=== PATIENT | male | born 1940 | race Caucasian/White ===

== ENCOUNTER 2017-10-30 12:45 | Observation (INO) ==
[2017-10-30] MEDS ORDERED: IOPAMIDOL 100 ML BOTTLE IV ONE (12:46)
--- NOTE | 2017-10-30 13:04 | Emergency Department Note ---
Altered Mental Status HPI - General Chief Complaint: Altered Mental Status Stated Complaint: Speech difficulties Time Seen by Provider: 10/30/17 12:57 Source: patient Mode of arrival: ambulatory Limitations: no limitations - History of Present Illness HPI Narrative: This patient was noted by a friend to be confused this morning. Last talk to him 2 days ago and notes that today he is much different than his normal baseline. Seems to be having trouble finding words but his speech is clear and fluid. He denies any other symptoms. - Related Data Home Medications Medication Instructions Recorded Confirmed Doxycycline Hyclate [Vibramycin] 100 mg PO BID 03/04/16 11/26/16 Lisinopril [Zestril] 10 mg PO DAILY 03/04/16 11/26/16 Nitroglycerin [Nitrostat] 0.4 mg SL Q5M PRN 03/04/16 11/26/16 Simvastatin [Zocor] 40 mg PO HS 03/04/16 11/26/16 Allergies Allergy/AdvReac Type Severity Reaction Status Date / Time No Known Drug Allergies Allergy Unverified 03/04/16 12:17 Review of Systems All systems ED: reviewed and negative except as stated. Past Medical History - Past Medical History [facility] Narrative: Medical History GERD (gastroesophageal reflux disease) (Acute) Dark stools (Acute) Groin pain (Acute) Medical history: Reports: hypertension Surgical history ED: Reports: no surgical history - Social History smoking status: Never smoker Alcohol use: Reports: None Drug use: Reports: none Physical Exam Limitations: no limitations General appearance: alert Head: atraumatic Eye: Present: normal appearance ENT: normal exam Neck: Present: normal inspection Chest: Present: normal inspection Respiratory: Present: normal lung sounds bilaterally Cardiovascular: Present: regular rate, normal rhythm, normal heart sounds Abdominal: Present: soft. Absent: distention, tenderness Neurological: Present: alert Cranial nerves: facial palsy (VII): Normal Motor strength - LUE: 5/5 Motor strength - RUE: 5/5 Motor strength - LLE: 5/5 Motor strength - RLE: 5/5 Psychiatric: Present: flat affect Skin: Present: warm, dry, intact Course Vital Signs Temperature 98.1 F 10/30/17 12:46 Pulse Rate 62 10/30/17 12:46 Respiratory Rate 18 10/30/17 12:46 Blood Pressure 138/67 10/30/17 12:46 Pulse Oximetry (%) 100 10/30/17 12:46 Temperature 98.1 F 10/30/17 12:46 Pulse Rate 62 10/30/17 14:48 Respiratory Rate 15 10/30/17 13:48 Blood Pressure 127/69 10/30/17 14:48 Pulse Oximetry (%) 100 10/30/17 14:48 Altered Mental Status - MDM Narrative Medical decision making narrative: Patient's lab work and CT and CTA of head and neck were not too remarkable. He is improving and not quite as confused. I have spoken with Dr. Painting the hospitalist and we will admit him to the hospital observation as a TIA. Continue the workup with an echocardiogram. - Lab Data Lab results reviewed: Yes I reviewed the patient's lab results. Result diagrams: 10/30/17 13:04 10/30/17 13:04 Lab Results 10/30/17 10/30/17 10/30/17 Range/Units 13:04 13:04 13:04 WBC 7.5 (4.5-11.0) K/mcL RBC 3.69 L (4.50-5.90) M/mcL Hgb 11.2 L (13.5-16.5) g/dL Hct 32.3 L (41.0-55.0) % POC Hct 32.0 L (41.0-55.0) % MCV 87.5 (80.0-100.0) fL MCH 30.3 (26.0-34.0) pg MCHC 34.6 (31.0-36.0) g/dL RDW 14.9 H (11.5-14.5) % Plt Count 235 (140-440) K/mcL MPV 7.3 L (7.4-10.4) fL Gran % 74.0 (38.0-78.0) % Lymph % (Auto) 16.4 (15.5-49.0) % [place] % (Auto) 8.5 (1.0-12.0) % Eos % (Auto) 0.9 (0.0-7.0) % Baso % (Auto) 0.2 (0.0-2.0) % Gran # 5.6 (1.8-8.0) K/mcL Lymph # (Auto) 1.2 L (1.5-4.8) K/mcL [place] # (Auto) 0.6 (0.1-0.9) K/mcL Eos # (Auto) 0.1 (0.0-0.7) K/mcL Baso # (Auto) 0 (0.0-0.3) K/mcL POC PT (11.9-14.5) sec POC INR (0.9-1.2) APTT (20-37) sec POC Sodium 133 (133-145) mmol/L Sodium 133 (133-145) mmol/L POC Potassium 3.6 (3.3-5.1) mmol/L Potassium 3.9 (3.3-5.1) mmol/L POC Chloride 106 (96-108) mmol/L Chloride 103 (96-108) mmol/L Carbon Dioxide 16 L (22-30) mmol/L POC Total CO2 17 L (22-30) mmol/L Anion Gap 14.0 (8-16) POC BUN 25 H (8-23) mg/dl BUN 25 H (8-23) mg/dl Creatinine 1.1 (0.7-1.2) mg/dl POC Creatinine 1.2 (0.7-1.2) mg/dl GFR Calculation 64 Glucose 109 H (70-105) mg/dL POC Glucose 108 H (70-105) mg/dL Calcium 8.4 L (8.6-10.4) mg/dl POC WB Ioniz Calcium 1.26 (1.16-1.32) mmol/L Total Bilirubin 0.5 (0.0-1.0) mg/dL AST 12 (0-37) U/l ALT 8 (0-40) U/l Alkaline Phosphatase 57 (39-117) U/L Troponin T < 0.01 (0-0.03) ng/ml Total Protein 7.2 (5.9-8.4) gm/dL Albumin 4.3 (3.2-5.2) gm/dL Globulin 2.9 (2.2-3.7) gm/dL Albumin/Globulin Ratio 1.5 (1.0-2.3) Urine Color Urine Appearance Urine pH (5.0-9.0) Ur Specific [place] (1.000-1.035) Urine Protein (NEG) mg/dL Urine Glucose (UA) (NEG) mg/dL Urine Ketones (NEG) mg/dL Urine Occult Blood (<0.03) mg/dL Urine Nitrate (NEG) Urine Bilirubin (NEG) mg/dL Urine Urobilinogen (NEG) mg/dL Ur Leukocyte Esterase (NEG) /uL Ur Culture Indicated? 10/30/17 10/30/17 Range/Units 13:07 14:39 WBC (4.5-11.0) K/mcL RBC (4.50-5.90) M/mcL Hgb (13.5-16.5) g/dL Hct (41.0-55.0) % POC Hct (41.0-55.0) % MCV (80.0-100.0) fL MCH (26.0-34.0) pg MCHC (31.0-36.0) g/dL RDW (11.5-14.5) % Plt Count (140-440) K/mcL MPV (7.4-10.4) fL Gran % (38.0-78.0) % Lymph % (Auto) (15.5-49.0) % [place] % (Auto) (1.0-12.0) % Eos % (Auto) (0.0-7.0) % Baso % (Auto) (0.0-2.0) % Gran # (1.8-8.0) K/mcL Lymph # (Auto) (1.5-4.8) K/mcL [place] # (Auto) (0.1-0.9) K/mcL Eos # (Auto) (0.0-0.7) K/mcL Baso # (Auto) (0.0-0.3) K/mcL POC PT 16.8 H (11.9-14.5) sec POC INR 1.4 H (0.9-1.2) APTT 25 (20-37) sec POC Sodium (133-145) mmol/L Sodium (133-145) mmol/L POC Potassium (3.3-5.1) mmol/L Potassium (3.3-5.1) mmol/L POC Chloride (96-108) mmol/L Chloride (96-108) mmol/L Carbon Dioxide (22-30) mmol/L POC Total CO2 (22-30) mmol/L Anion Gap (8-16) POC BUN (8-23) mg/dl BUN (8-23) mg/dl Creatinine (0.7-1.2) mg/dl POC Creatinine (0.7-1.2) mg/dl GFR Calculation Glucose (70-105) mg/dL POC Glucose (70-105) mg/dL Calcium (8.6-10.4) mg/dl POC WB Ioniz Calcium (1.16-1.32) mmol/L Total Bilirubin (0.0-1.0) mg/dL AST (0-37) U/l ALT (0-40) U/l Alkaline Phosphatase (39-117) U/L Troponin T (0-0.03) ng/ml Total Protein (5.9-8.4) gm/dL Albumin (3.2-5.2) gm/dL Globulin (2.2-3.7) gm/dL Albumin/Globulin Ratio (1.0-2.3) Urine Color Yellow Urine Appearance Hazy Urine pH 6.0 (5.0-9.0) Ur Specific [place] 1.027 (1.000-1.035) Urine Protein Neg (NEG) mg/dL Urine Glucose (UA) Negative (NEG) mg/dL Urine Ketones Neg (NEG) mg/dL Urine Occult Blood Neg (<0.03) mg/dL Urine Nitrate Neg (NEG) Urine Bilirubin Neg (NEG) mg/dL Urine Urobilinogen Neg (NEG) mg/dL Ur Leukocyte Esterase Neg (NEG) /uL Ur Culture Indicated? No - Radiology Data Radiology results reviewed: Yes I reviewed the patient's radiology results. Disposition Pt seen by CELERY STRIPPER/PA only: No Clinical Impression: Altered mental status, TIA (transient ischemic attack) Disposition: Xfer As Outpt/Obs ([facility]) Condition: Good Referrals: Fede Souza MD [Family Provider] - Time of Disposition: 15:34
[2017-10-30 13:33] LABS: Basophils # (Auto) 0 K/mcL (0.0-0.3); Basophils % (Auto) 0.2 % (0.0-2.0); Eosinophils # (Auto) 0.1 K/mcL (0.0-0.7); Eosinophils % (Auto) 0.9 % (0.0-7.0); Lymphocytes # (Auto) 1.2 K/mcL (1.5-4.8); Lymphocytes % (Auto) 16.4 % (15.5-49.0); Mean Cell Volume 87.5 fL (80.0-100.0); Mean Corpuscular HGB Conc 34.6 g/dL (31.0-36.0); Mean Corpuscular Hemoglobin 30.3 pg (26.0-34.0); Monocytes # (Auto) 0.6 K/mcL (0.1-0.9); Monocytes % (Auto) 8.5 % (1.0-12.0); Platelet Count 235 K/mcL (140-440); RBC 3.69 M/mcL (4.50-5.90); Red Cell Distribution Width 14.9 % (11.5-14.5)
--- NOTE | 2017-10-30 13:48 | Cat Scan Report ---
CLINICAL INFORMATION: Slurred speech COMPARISON: None. TECHNIQUE: Axial noncontrast-enhanced images through the brain. FINDINGS: No acute intracranial hemorrhage. No subdural hematoma. No subarachnoid hemorrhage. Basilar cisterns are normal. No intra-axial hematoma. No focal attenuation abnormality or localized mass effect. No midline shift. Brain volume is within normal limits for age. Brainstem and cerebellum are negative. No calvarial lesions. No fracture. No lytic lesion. Temporal bones are negative. There is inflammatory disease within ethmoid and sphenoid air cells. No air-fluid levels. No destructive lesions. IMPRESSION: Negative noncontrast enhanced brain CT scan The exam was performed using radiation dose optimization techniques including, but not limited to, automated exposure control, adjustment of the mA and/or kV according to patient size and use of iterative reconstruction technique. Interpreted and Authenticated by: Onel Carlson 10/30/17
[2017-10-30 13:53] LABS: ALT/SGPT 8 U/l (0-40); Albumin 4.3 gm/dL (3.2-5.2); Albumin/Globulin Ratio 1.5 (1.0-2.3); Alkaline Phosphatase 57 U/L (39-117); Blood Urea Nitrogen 25 mg/dl (8-23)
--- NOTE | 2017-10-30 13:53 | Cat Scan Report ---
CLINICAL INFORMATION: Slurred speech TECHNIQUE: 90 mL contrast injected intravenously. Scanning performed during arterial phase. Routine axial source images. MIP reformatted axial, sagittal, coronal images COMPARISON: On contrast enhanced brain CT scan dated 10/30/2017 FINDINGS: Intracranial vertebral arteries are normal. Left vertebral artery is larger than the right. Basilar artery is normal. No stenosis. No dilatation. No basilar tip aneurysm. Atherosclerotic disease in the petrous, cavernous, and proximal supraclinoid segments of the internal carotid arteries. No stenosis. No aneurysm. M1 segments of the middle cerebral arteries and A1 segments of the anterior cerebral arteries are negative. No stenosis. No intracranial aneurysm. No arteriovenous malformation. No detectable occluded branch. No enhancing intra-axial abnormality. Dural sinuses are patent. No pathologic leptomeningeal or dural enhancement. No intra-axial enhancing lesions. IMPRESSION: 1. Mild atherosclerotic calcification of the petrous, cavernous, and supraclinoid segments of the internal carotid arteries 2. No intracranial stenoses. No occluded branch. 3. No aneurysm or arteriovenous malformation Interpreted and Authenticated by: Onel Carlson 10/30/17
--- NOTE | 2017-10-30 14:06 | Cat Scan Report ---
CLINICAL INFORMATION: Slurred speech TECHNIQUE: 90 mL contrast material injected intravenously. Scanning performed during arterial phase. MIP and CPR reformatted images COMPARISON: None. FINDINGS: Minimal calcification at the origin of the left common carotid artery. No stenosis. Aortic arch is otherwise negative. Normal left subclavian artery, left common carotid artery, innominate artery, right common carotid artery, right subclavian artery. There is mild calcified plaque in the proximal internal carotid artery bilaterally. No soft plaque. No ulceration. No stenosis. Cervical internal carotid arteries are otherwise negative Vertebral arteries are negative. No stenosis or occlusion. Multilevel degenerative disc disease in the cervical spine. No fracture. There is reversal of normal cervical lordosis. No prevertebral soft tissue swelling. No cervical soft tissue mass. No solid or cystic lesion. Lung apices are negative. IMPRESSION: 1. Mild calcified plaque at the origin of both internal carotid arteries. 2. No soft plaque. No stenosis. No evidence for ulceration 3. No other abnormality Interpreted and Authenticated by: Onel Carlson 10/30/17
[2017-10-30 14:51] LABS: Appearance,Urine HAZY; Bilirubin,Urine NEG (NEG); Color,Urine YELLOW; Glucose,Urine (UA) NEGATIVE (NEG); Leukocyte Esterase,Urine NEG /uL (NEG); Protein,Urine NEG (NEG); Specific Gravity,Urine 1.027 (1.000-1.035); Urine Blood NEG mg/dL (<0.03); Urobilinogen,Urine NEG (NEG)
[2017-10-30] MEDS ORDERED: MAGNESIUM SULFATE 2 GM/50 ML BAG IV PRN (16:45)
[2017-10-30] MEDS ORDERED: ACETAMINOPHEN 1,000 MG/100 ML BOTTLE IV PRN (16:45)
[2017-10-30] MEDS ORDERED: POTASSIUM CHLORIDE 20 MEQ PACKET PO PRN (16:45)
[2017-10-30] MEDS ORDERED: ONDANSETRON 4 MG/2 ML VIAL IV PRN (16:45)
[2017-10-30] MEDS ORDERED: ACETAMINOPHEN 325 MG TABLET PO PRN (16:45)
[2017-10-30] MEDS: SIMVASTATIN 40 MG TABLET PO SCH ×2 (18:19→21:39)
[2017-10-30 18:29] LABS: C-Reactive Protein 0.5 mg/dl (0.0-0.8)
--- NOTE | 2017-10-30 19:01 | Magnetic Resonance Report ---
CLINICAL INFORMATION: Confusion COMPARISON: Brain CT scan dated 10/30/2017. CTA of the head and neck dated 10/30/2017 TECHNIQUE: Sagittal T1 FLAIR images. Axial DWI, T1 FLAIR, T2 FLAIR, . FINDINGS: Limited scan performed to evaluate for possible acute stroke. No restricted diffusion. No acute infarction. No focal intra-axial signal abnormality. No localized mass effect. No midline shift. There is age appropriate cerebral atrophy. No extra-axial, intracranial abnormality. No subdural hematoma. IMPRESSION: Negative Limited evaluation. No acute infarction Interpreted and Authenticated by: Onel Carlson 10/30/17
--- NOTE | 2017-10-30 19:43 | Internal Med History&Physical ---
Medical - H&P: [facility] Patient information: Note initiated : 10/30/17 at 7:39 pm Service Date, if different from initiated Date: [] Patient: Arjun Huang 76 y/o M admitted on 10/30/17 for Speech difficulties. Chief Complaint: [] Chief complaint: confused, slurred speech, double vision History of present illness: Mr. Huang is a 76 year old M with a history of hypertension/hyperlipidemia and follows up with Dr. Jaime as outpatient. Patient over the last 1 week has noticed change in vision with blurring and diplopia. He lives alone and has been managing independently with her sister and niece in town. This morning he was discovered by his friend confused and slurring and difficulty finding words. He was subsequently brought to [facility] ER. Initial workup was unremarkable with a negative head CT/CT angiogram head and neck.MRI was ordered. Patient received aspirin and statin. blood work including biochemical profile was unremarkable with a negative UA Subsequently hospitalist service was consulted for evaluation of TIA. The time of evaluation patient is accompanied with niece. denies tender clap headache. Denies fever or chills. He endorses double vision that has been ongoing over the last couple of days. He however was able to answer most the question and his symptoms have significantly improved since arrival to the ER. He denies swallowing difficulty. Denies seizure-like episode or loss of consciousness. Denies chest pain palpitation during neck pain unilateral headache. He denies recent changes in medication or prior similar episodes. He denies weight loss and glandular swelling. Review of systems A 10 point review of system was performed and is negative except for ones discussed above Medical - H&P: PMH Medical history: hypertension Hyperlipidemia GERD (gastroesophageal reflux disease) Pertinent family history: nonrelevant Social history: nonsmoker No history of alcoholism lives independently Have you smoked in the last 12 months: No Medical - H&P: Meds Home Medications Medication Instructions Recorded Confirmed Type Lisinopril [Zestril] 10 mg PO DAILY 03/04/16 11/26/16 History Nitroglycerin [Nitrostat] 0.4 mg SL Q5M PRN 03/04/16 11/26/16 History Simvastatin [Zocor] 40 mg PO HS 03/04/16 11/26/16 History Aspirin 324 mg CHEWED DAILY #30 tab.chew 10/31/17 Rx Allergies Allergy/AdvReac Type Severity Reaction Status Date / Time No Known Drug Allergies Allergy Unverified 03/04/16 12:17 Medical - H&P: Exam - Constitutional Vitals: Temp Pulse Resp BP Pulse Ox 98.1 F 62 15 139/68 99 10/30/17 16:47 10/30/17 17:10 10/30/17 16:47 10/30/17 16:47 10/30/17 16:47 Exam: Alert oriented Difficulty ord finding No ear nose discharge Head normocephalic atraumatic Neck no lymphadenopathy S1-S2 regular rhythm E SM grade 1 Diminished breath sounds bases Abdomen soft nontender Lower extremity no cyanosis clubbing No joint swelling erythema Skin no suspicious lesion Psych alert cooperative Neuro Higher functions unremarkable Asymmetric pupil Disconjugate gaze with left eye laterally deviated Symmetrical strength Symmetrical tone Symmetrical reflexes erebellar signs negative Medical - H&P: Reslt - Labs CBC & Chem 7: 10/31/17 04:10 10/31/17 04:10 Labs: Short CBC 10/30/17 Range/Units 13:04 WBC 7.5 (4.5-11.0) K/mcL Hgb 11.2 L (13.5-16.5) g/dL Hct 32.3 L (41.0-55.0) % Plt Count 235 (140-440) K/mcL BMP 10/30/17 13:04 Sodium 133 Potassium 3.9 Chloride 103 Carbon Dioxide 16 L BUN 25 H Creatinine 1.1 Glucose 109 H Calcium 8.4 L Cardiac Enzymes 10/30/17 Range/Units 13:04 Troponin T < 0.01 (0-0.03) ng/ml Liver Function 10/30/17 Range/Units 13:04 Total Bilirubin 0.5 (0.0-1.0) mg/dL AST 12 (0-37) U/l ALT 8 (0-40) U/l Alkaline Phosphatase 57 (39-117) U/L Albumin 4.3 (3.2-5.2) gm/dL Urine 10/30/17 Range/Units 14:39 Urine Color Yellow Urine Appearance Hazy Urine pH 6.0 (5.0-9.0) Ur Specific [place] 1.027 (1.000-1.035) Urine Protein Neg (NEG) mg/dL Urine Glucose (UA) Negative (NEG) mg/dL Medical - H&P: A/P (1) Diplopia Current visit: Yes Status: Acute * diplopia with Dysarthria- likely brainstem lesion with bulbar symptoms. CT head/CT Angiohead and neck negative. MRI pending.echo pending. On aspirin and statin. admitted to telemetry. Aggressive PT OT. * History of hypertension continue lisinopril * full code * Prophylaxis heparin Plan * CVA workup * Aggressive PT OT * Telemetry admit
[2017-10-30] MEDS: 0.9 % SODIUM CHLORIDE 1,000 ML IV SCH (20:33)
[2017-10-30] MEDS: DOCUSATE SODIUM 100 MG CAPSULE PO SCH (21:38)
[2017-10-30] MEDS: SENNOSIDES/DOCUSATE SODIUM 1 TAB TABLET PO SCH (21:38)
[2017-10-30] MEDS: HEPARIN 5,000 UNIT/ML VIAL SQ SCH (21:38)
[2017-10-30] MEDS: 0.9 % SODIUM CHLORIDE 10 ML SYRINGE IV SCH (21:40)
[2017-10-31] MEDS: 0.9 % SODIUM CHLORIDE 10 ML SYRINGE IV SCH ×3 (05:15→22:00)
[2017-10-31 05:28] LABS: Mean Cell Volume 88.5 fL (80.0-100.0); Mean Corpuscular HGB Conc 33.6 g/dL (31.0-36.0); Mean Corpuscular Hemoglobin 29.8 pg (26.0-34.0); Platelet Count 224 K/mcL (140-440); RBC 3.48 M/mcL (4.50-5.90); Red Cell Distribution Width 14.7 % (11.5-14.5)
[2017-10-31 06:02] LABS: Eosinophils % (Manual) 2 % (0-7); Lymphocytes % 27 % (15-49); Monocytes % (Manual) 7 % (1-12); Platelet Estimate NORMAL (NORMAL); RBC Morphology NORMAL (NORMAL); Segmented Neutrophils % 63 % (38-78)
[2017-10-31 06:40] LABS: ALT/SGPT 8 U/l (0-40); Albumin 3.8 gm/dL (3.2-5.2); Albumin/Globulin Ratio 1.5 (1.0-2.3); Alkaline Phosphatase 54 U/L (39-117); Bilirubin,Direct < 0.2 mg/dL (0.0-0.3); Blood Urea Nitrogen 20 mg/dl (8-23); Gamma Glutamyl Transpeptidase 9 U/L (8-61); Uric Acid 4.9 mg/dL (2.5-8.0)
[2017-10-31] MEDS: THIAMINE 100 MG in 0.9 % SODIUM CHLORIDE 50 ML IV SCH (09:22)
[2017-10-31] MEDS: MULTIVIT,THER IRON,CA,FA & MIN 1 TABLET PO SCH (09:23)
[2017-10-31] MEDS: ASPIRIN 81 MG TAB.CHEW CHEWED SCH (09:23)
[2017-10-31] MEDS: HEPARIN 5,000 UNIT/ML VIAL SQ SCH ×2 (09:23→19:43)
[2017-10-31] MEDS: DOCUSATE SODIUM 100 MG CAPSULE PO SCH ×2 (09:24→19:43)
--- NOTE | 2017-10-31 09:36 | Discharge Summary ---
Medical - DS: Prov Patient information: Note initiated : 10/31/17 at 9:34 am Service Date, if different from initiated Date: [] Patient: Arjun Huang 76 y/o M admitted on 10/30/17 for Speech difficulties. Chief Complaint: [] Date of admission: 10/30/17 16:39 Discharge date: 10/31/17 Primary care physician: Arjun Brooks Consults: 10/30/17 15:30 Consult to Physician [CONS] Stat Comment: Consulting Provider: Adebayo Martin Reason For Exam: Physician to Consult Medical - DS: Meds - Discharge Medications Prescriptions: Aspirin 324 mg CHEWED DAILY #30 tab.chew Active and Home Medications: Home Medications Lisinopril [Zestril] 10 mg PO DAILY 03/04/16 [History Confirmed 11/26/16 Last Taken Unknown] Nitroglycerin [Nitrostat] 0.4 mg SL Q5M PRN 03/04/16 [History Confirmed Last Taken Unknown] Simvastatin [Zocor] 40 mg PO HS 03/04/16 [History Confirmed 11/26/16 Last Taken Unknown] Aspirin 324 mg CHEWED DAILY #30 tab.chew 10/31/17 [Rx Last Taken Unknown] Medical - DS: Hosp Hospital course: Discharge diagnosis * Diplopia with Dysarthria- likely brainstem lesion with bulbar symptoms. CT head/CT Angio head and neck/MRI brain negative. Echo pending. On aspirin and statin. Continue home health PT OT. DC home * History of hypertension continue lisinopril [facility] Mr. Huang is a 76 year old M with a history of hypertension/hyperlipidemia and follows up with Dr. Jaime as outpatient. Patient over the last 1 week has noticed change in vision with blurring anddiplopia. lives alone and has been managing independently with her sister and niece in town. This morning he was discovered by his friend confused and slurring and difficulty finding words. He was subsequently brought to [facility]. Initial workup was unremarkable with a negative head CT/CT angiogram head and neck.MRI was ordered. Patient received aspirin and statin. blood work including biochemical profile was unremarkable with a negative UA Subsequently hospitalist service was consulted for evaluation of TIA. The time of evaluation patient is accompanied with niece. denies tender clap headache. Denies fever or chills. He endorses double vision that has been ongoing over the last couple of days. He however was able to answer most the question and his symptoms have significantly improved since arrival to the ER. He denies swallowing difficulty. Denies seizure-like episode or loss of consciousness. Denies chest pain palpitation during neck pain unilateral headache. He denies recent changes in medication or prior similar episodes. He denies weight loss and glandular swelling. 10/31- symptoms fully resolved. Diplopia resolved. No dysarthria and dysphagia. Neuroimaging unremarkable. Echo pending. Continue aspirin and statin. Discharge with home health physical therapy/occupational therapy. Follow-up PCP in 5-10 days Discharge diagnosis: . - Time Spent with Patient Total time spent providing and/or coordinating discharge services: Greater than 30 minutes Medical - DS: Exam - Constitutional Vitals: Vital Signs Temp Pulse Pulse Pulse Resp BP BP 10/31/17 06:55 98.8 F 14 135/53 10/31/17 03:55 97.8 F 60 16 132/68 10/30/17 23:53 98.2 F 72 16 126/58 10/30/17 20:00 98.0 F 68 16 148/64 10/30/17 17:10 62 10/30/17 16:47 98.1 F 62 15 139/68 10/30/17 16:45 98.6 F 64 15 10/30/17 15:56 15 10/30/17 15:46 62 139/68 10/30/17 15:32 51 L 121/56 10/30/17 15:16 59 L 131/67 10/30/17 15:01 64 131/71 10/30/17 14:48 62 127/69 10/30/17 14:46 61 127/69 10/30/17 14:31 64 126/66 10/30/17 14:16 62 126/69 10/30/17 14:04 59 L 10/30/17 14:01 127/63 10/30/17 13:48 15 128/61 10/30/17 13:21 59 L 19 10/30/17 13:16 58 L 18 115/60 10/30/17 13:15 57 L 18 10/30/17 13:11 59 L 17 126/64 10/30/17 12:46 98.1 F 62 18 138/67 Pulse Ox 10/31/17 06:55 97 10/31/17 03:55 99 10/30/17 23:53 98 10/30/17 20:00 10/30/17 17:10 10/30/17 16:47 99 10/30/17 16:45 98 10/30/17 15:56 10/30/17 15:46 99 10/30/17 15:32 95 10/30/17 15:16 99 10/30/17 15:01 100 10/30/17 14:48 100 10/30/17 14:46 100 10/30/17 14:31 99 10/30/17 14:16 94 10/30/17 14:04 96 10/30/17 14:01 10/30/17 13:48 10/30/17 13:21 98 10/30/17 13:16 99 10/30/17 13:15 99 10/30/17 13:11 98 10/30/17 12:46 100 Intake and Output 10/30/17 10/31/17 10/31/17 21:59 05:59 13:59 Intake Total 0 / 0 Output Total 250 / 250 650 / 650 250 / 250 Balance -250 / -250 -650 / -650 -250 / -250 Intake: Oral 0 / 0 Output: Void Amount 250 / 250 650 / 650 250 / 250 Other: # Voids 1 Weight 153 lb 8 oz Medical - DS: Data Labs on day of discharge: Labs from last 24 hours 10/31/17 10/31/17 10/30/17 04:10 04:10 14:39 WBC 8.3 RBC 3.48 L Hgb 10.4 L Hct 30.8 L POC Hct MCV 88.5 MCH 29.8 MCHC 33.6 RDW 14.7 H Plt Count 224 MPV 7.6 Gran % Lymph % (Auto) Crane % (Auto) Eos % (Auto) Baso % (Auto) Gran # Lymph # (Auto) [place] # (Auto) Eos # (Auto) Baso # (Auto) Total Counted 100 Seg Neutrophils % 63 Band Neutrophils % Not Reportable Lymphocytes % 27 Monocytes % (Manual) 7 Eosinophils % (Manual) 2 Reactive Lymphocytes 1 Platelet Estimate Normal RBC Morphology Normal ESR POC PT POC INR APTT POC Sodium Sodium 135 POC Potassium Potassium 3.7 POC Chloride Chloride 105 Carbon Dioxide 15 L POC Total CO2 Anion Gap 15.0 POC BUN BUN 20 Creatinine 1.1 POC Creatinine GFR Calculation 64 Glucose 96 POC Glucose Uric Acid 4.9 Calcium 8.4 L POC WB Ioniz Calcium Phosphorus 2.9 Magnesium 2.1 Total Bilirubin 0.3 Direct Bilirubin < 0.2 GGT 9 AST 11 ALT 8 Alkaline Phosphatase 54 Lactate Dehydrogenase 150 Troponin T C-Reactive Protein Total Protein 6.4 Albumin 3.8 Globulin 2.6 Albumin/Globulin Ratio 1.5 Triglycerides 52 TSH 2.06 Urine Color Yellow Urine Appearance Hazy Urine pH 6.0 Ur Specific [place] 1.027 Urine Protein Neg Urine Glucose (UA) Negative Urine Ketones Neg Urine Occult Blood Neg Urine Nitrate Neg Urine Bilirubin Neg Urine Urobilinogen Neg Ur Leukocyte Esterase Neg Ur Culture Indicated? No 10/30/17 10/30/17 10/30/17 13:07 13:04 13:04 WBC RBC Hgb Hct POC Hct MCV MCH MCHC RDW Plt Count MPV Gran % Lymph % (Auto) [place] % (Auto) Eos % (Auto) Baso % (Auto) Gran # Lymph # (Auto) [place] # (Auto) Eos # (Auto) Baso # (Auto) Total Counted Seg Neutrophils % Band Neutrophils % Lymphocytes % Monocytes % (Manual) Eosinophils % (Manual) Reactive Lymphocytes Platelet Estimate RBC Morphology ESR 43 H POC PT 16.8 H POC INR 1.4 H APTT 25 POC Sodium Sodium POC Potassium Potassium POC Chloride Chloride Carbon Dioxide POC Total CO2 Anion Gap POC BUN BUN Creatinine POC Creatinine GFR Calculation Glucose POC Glucose Uric Acid Calcium POC WB Ioniz Calcium Phosphorus Magnesium Total Bilirubin Direct Bilirubin GGT AST ALT Alkaline Phosphatase Lactate Dehydrogenase Troponin T C-Reactive Protein 0.5 Total Protein Albumin Globulin Albumin/Globulin Ratio Triglycerides TSH Urine Color Urine Appearance Urine pH Ur Specific [place] Urine Protein Urine Glucose (UA) Urine Ketones Urine Occult Blood Urine Nitrate Urine Bilirubin Urine Urobilinogen Ur Leukocyte Esterase Ur Culture Indicated? 10/30/17 10/30/17 10/30/17 13:04 13:04 13:04 WBC 7.5 RBC 3.69 L Hgb 11.2 L Hct 32.3 L POC Hct 32.0 L MCV 87.5 MCH 30.3 MCHC 34.6 RDW 14.9 H Plt Count 235 MPV 7.3 L Gran % 74.0 Lymph % (Auto) 16.4 Crane % (Auto) 8.5 Eos % (Auto) 0.9 Baso % (Auto) 0.2 Gran # 5.6 Lymph # (Auto) 1.2 L [place] # (Auto) 0.6 Eos # (Auto) 0.1 Baso # (Auto) 0 Total Counted Seg Neutrophils % Band Neutrophils % Lymphocytes % Monocytes % (Manual) Eosinophils % (Manual) Reactive Lymphocytes Platelet Estimate RBC Morphology ESR POC PT POC INR APTT POC Sodium 133 Sodium 133 POC Potassium 3.6 Potassium 3.9 POC Chloride 106 Chloride 103 Carbon Dioxide 16 L POC Total CO2 17 L Anion Gap 14.0 POC BUN 25 H BUN 25 H Creatinine 1.1 POC Creatinine 1.2 GFR Calculation 64 Glucose 109 H POC Glucose 108 H Uric Acid Calcium 8.4 L POC WB Ioniz Calcium 1.26 Phosphorus Magnesium Total Bilirubin 0.5 Direct Bilirubin GGT AST 12 ALT 8 Alkaline Phosphatase 57 Lactate Dehydrogenase Troponin T < 0.01 C-Reactive Protein Total Protein 7.2 Albumin 4.3 Globulin 2.9 Albumin/Globulin Ratio 1.5 Triglycerides TSH Urine Color Urine Appearance Urine pH Ur Specific [place] Urine Protein Urine Glucose (UA) Urine Ketones Urine Occult Blood Urine Nitrate Urine Bilirubin Urine Urobilinogen Ur Leukocyte Esterase Ur Culture Indicated? Medical - DS: A/P - Patient/Caregiver Discharge Instructions Activity: as per physical therapy Diet: Regular Diet Additional Instructions: Follow-up PCP in 5 days continue aspirin 325 daily Continue aggressive bowel regimen to prevent constipation Continue fall precautions home health PT OT All meals on chair sitting upright at 90 degrees to prevent aspiration Return to ER if worsening fever chills shortness of breath, diarrhea, bleeding Review risk and side effect profile of medications including aspirin. Side effect may include mild to severe reaction including life threatening bleed and even which can be prevented by close follow-up with PCP and monitoring for side effects Continue diet and activity as advised Discussed importance of medication adherence Please review medication list with patient prior to discharge Please schedule follow-up with PCP/Providers prior to discharge and provide printouts Portions of this chart may have been created with [employer] voice recognition software. Occasional wrong-word or ?sound-like? substitutions may have occurred due to the inherent limitations of voice recognition software. Please read the chart carefully and recognize, using context, where the substitutions have occurred. CC- PCP Prescriptions: Aspirin 324 mg CHEWED DAILY #30 tab.chew - Follow up Plan Follow up with: Fede Souza MD [Family Provider] - Disposition: Home Health Service Prognosis: Good Rehab Potential: Fair I certify that the patient requires SNF services: No Overall status at discharge: patient is progressing back to baseline
--- NOTE | 2017-10-31 16:20 | XRay Report ---
INDICATION: Confusion TECHNIQUE: AP chest x-ray,portable upright COMPARISON: Chest x-ray dated 09/22/2008 FINDINGS:Focal right basilar density is unchanged since previous examination. This is benign. Lungs are otherwise negative. No other focal infiltrate or mass. Heart size and vascularity are normal. No pulmonary edema or pulmonary congestion. Tameka and mediastinum are negative. IMPRESSION: 1. No acute abnormality. 2. No significant interval change since 2008 Interpreted and Authenticated by: Onel Carlson 10/31/17
[2017-10-31] MEDS: SENNOSIDES/DOCUSATE SODIUM 1 TAB TABLET PO SCH (19:43)
[2017-10-31] MEDS: SIMVASTATIN 40 MG TABLET PO SCH (19:43)
[2017-10-31] MEDS: 0.9 % SODIUM CHLORIDE 1,000 ML IV SCH (19:50)
[2017-11-01 06:02] LABS: Mean Cell Volume 88.5 fL (80.0-100.0); Mean Corpuscular HGB Conc 33.8 g/dL (31.0-36.0); Mean Corpuscular Hemoglobin 29.9 pg (26.0-34.0); Platelet Count 233 K/mcL (140-440); RBC 3.61 M/mcL (4.50-5.90); Red Cell Distribution Width 14.8 % (11.5-14.5)
[2017-11-01 06:40] LABS: ALT/SGPT 7 U/l (0-40); Albumin 3.8 gm/dL (3.2-5.2); Albumin/Globulin Ratio 1.3 (1.0-2.3); Alkaline Phosphatase 53 U/L (39-117); Bilirubin,Direct < 0.2 mg/dL (0.0-0.3); Blood Urea Nitrogen 14 mg/dl (8-23); Gamma Glutamyl Transpeptidase 11 U/L (8-61)
[2017-11-01] MEDS: 0.9 % SODIUM CHLORIDE 10 ML SYRINGE IV SCH ×3 (06:47→20:57)
[2017-11-01 06:52] LABS: Eosinophils % (Manual) 2 % (0-7); Lymphocytes % 32 % (15-49); Monocytes % (Manual) 9 % (1-12); Platelet Estimate NORMAL (NORMAL); RBC Morphology NORMAL (NORMAL); Segmented Neutrophils % 56 % (38-78)
[2017-11-01] MEDS: HEPARIN 5,000 UNIT/ML VIAL SQ SCH (08:39)
[2017-11-01] MEDS: THIAMINE 100 MG in 0.9 % SODIUM CHLORIDE 50 ML IV SCH (08:39)
[2017-11-01] MEDS: DOCUSATE SODIUM 100 MG CAPSULE PO SCH ×2 (08:40→20:56)
[2017-11-01] MEDS: ASPIRIN 81 MG TAB.CHEW CHEWED SCH (08:40)
[2017-11-01] MEDS: MULTIVIT,THER IRON,CA,FA & MIN 1 TABLET PO SCH (08:40)
[2017-11-01] MEDS ORDERED: POTASSIUM CHLORIDE 20 MEQ PACKET PO PRN (11:16)
[2017-11-01] MEDS ORDERED: ACETAMINOPHEN 1,000 MG/100 ML BOTTLE IV PRN (11:16)
[2017-11-01] MEDS ORDERED: ONDANSETRON 4 MG/2 ML VIAL IV PRN (11:16)
[2017-11-01] MEDS ORDERED: MAGNESIUM SULFATE 2 GM/50 ML BAG IV PRN (11:16)
[2017-11-01] MEDS ORDERED: ACETAMINOPHEN 325 MG TABLET PO PRN (11:16)
--- NOTE | 2017-11-01 15:39 | Internal Med Progress Note ---
Medical - PN: Subj Patient information: Note initiated : 11/01/17 at 3:36 pm Service Date, if different from initiated Date: [] Patient: Arjun Huang 76 y/o M admitted on 10/30/17 for Speech Difficulties /Diplopia. Chief Complaint: [] Interval history: Mr. Huang is a 76 year old M with a history of hypertension/hyperlipidemia and follows up with Dr. Jaime as outpatient. Patient over the last 1 week has noticed change in vision with blurring anddiplopia. lives alone and has been managing independently with her sister and niece in town. This morning he was discovered by his friend confused and slurring and difficulty finding words. He was subsequently brought to [facility] ER. Initial workup was unremarkable with a negative head CT/CT angiogram head and neck.MRI was ordered. Patient received aspirin and statin. blood work including biochemical profile was unremarkable with a negative UA Subsequently hospitalist service was consulted for evaluation of TIA. The time of evaluation patient is accompanied with niece. denies tender clap headache. Denies fever or chills. He endorses double vision that has been ongoing over the last couple of days. He however was able to answer most the question and his symptoms have significantly improved since arrival to the ER. He denies swallowing difficulty. Denies seizure-like episode or loss of consciousness. Denies chest pain palpitation during neck pain unilateral headache. He denies recent changes in medication or prior similar episodes. He denies weight loss and glandular swelling. 10/31- symptoms fully resolved. Diplopia resolved. No dysarthria and dysphagia. Neuroimaging unremarkable. Echo pending. Continue aspirin and statin. Discharge with home health physical therapy/occupational therapy. Follow-up PCP in 5-10 days 11/01 Patient seen and examined, no neurological symptoms, patient's symptoms nearly resolved. Patient was deemed unstable for discharge yesterday and therefore stayed another day. Plan is for the patient to be discharged to a rehab facility we are waiting on insurance clearance. Continue with physical therapy while inpatient Pertinent ROS: Denies headache, dizziness Denies chest pain, palpitations Denies cough or shortness of breath Denies abdominal pain, nausea or vomiting. - Constitutional Vitals: Vital Signs Temp Pulse Resp BP Pulse Ox 98 F 62 16 158/78 99 11/01/17 12:15 11/01/17 12:15 11/01/17 12:15 11/01/17 12:15 11/01/17 08:30 Period Temp Pulse Resp BP Sys/Webb Pulse Ox Last 24 Hr 97.7 F-99.4 F 59-68 14-16 145-159/68-78 96-99 Intake and Output 11/01/17 11/01/17 11/01/17 05:59 13:59 21:59 Intake Total 250 / 250 969 / 969 Output Total 900 / 900 350 / 350 Balance -650 / -650 619 / 619 Intake & Output: Intake & Output 11/01/17 11/01/17 11/01/17 05:59 13:59 21:59 Intake Total 250 / 250 969 / 969 Output Total 900 / 900 350 / 350 Balance -650 / -650 619 / 619 Intake: IV 589 / 589 Sodium Chloride 0.9% 1,000 ml @ 538 / 538 42 mls/hr IV .[id number] AILYN Rx#: [id number] Vitamin B1 100 mg In Sodium 51 / 51 Chloride 0.9% 50 ml @ 50 mls/hr IV DAILY AILYN Rx#:[id number] Oral 250 / 250 380 / 380 Output: Void Amount 900 / 900 350 / 350 Other: Meal Breakfast Percent of Meal Consumed 75% Feeding Ability Independent # Voids 1 Exam: Constitutional; Afebrile, cooperative, alert, not in distress. Eyes- No icterus, , No periorbital swelling Ears- Ext ear normal, hearing okay to conversation Neck- Midline trachea, supple Respiratory system: Air Entry equal on both sides, No crackles or wheezing, no rhonchi. CVS- Rate rhythm regular, S1,S2 heard, no gallop, no rub. Abdomen- Soft nontender abdomen, no organomegaly, no tenderness, no guarding or rigidity, [employer]- AOOx3, moving all extremities, no gross focal deficit noted. Medical - PN: Obj Da - Labs CBC & Chem 7: 11/01/17 03:45 11/01/17 03:45 Labs: Abnormal Lab Results 11/01/17 11/01/17 10/31/17 03:45 03:45 04:10 RBC 3.61 L Hgb 10.8 L Hct 32.0 L POC Hct RDW 14.8 H MPV Lymph # (Auto) ESR POC PT POC INR Carbon Dioxide 16 L 15 L POC Total CO2 POC BUN BUN Glucose POC Glucose Calcium 8.5 L 8.4 L Phosphorus 2.2 L 10/31/17 10/30/17 10/30/17 04:10 13:07 13:04 RBC 3.48 L Hgb 10.4 L Hct 30.8 L POC Hct RDW 14.7 H MPV Lymph # (Auto) ESR 43 H POC PT 16.8 H POC INR 1.4 H Carbon Dioxide POC Total CO2 POC BUN BUN Glucose POC Glucose Calcium Phosphorus 10/30/17 10/30/17 13:04 13:04 RBC 3.69 L Hgb 11.2 L Hct 32.3 L POC Hct 32.0 L RDW 14.9 H MPV 7.3 L Lymph # (Auto) 1.2 L ESR POC PT POC INR Carbon Dioxide 16 L POC Total CO2 17 L POC BUN 25 H BUN 25 H Glucose 109 H POC Glucose 108 H Calcium 8.4 L Phosphorus Meds: Medications Acetaminophen (Tylenol) 650 mg PO Q4-6HP PRN PRN Reason: PAIN/FEVER > 101 Aspirin (Aspirin) 324 mg CHEWED DAILY [facility] Docusate Sodium (Colace) 100 mg PO BID [facility] Fondaparinux (Arixtra) 2.5 mg SQ DAILY [facility] Magnesium Sulfate (Magnesium Sulfate) 2 gm in 50 mls @ 50 mls/hr IV UD PRN PRN Reason: MG = or < 1.7 Acetaminophen (Ofirmev) 1,000 mg in 100 mls @ 200 mls/hr IV Q6HP PRN PRN Reason: PAIN/FEVER > 101 Thiamine HCl 100 mg/ Sodium (Chloride) 51 mls @ 50 mls/hr IV DAILY [facility] Stop: 11/02/17 10:02 Iron Carb/Multivit/[place]/Folic Acid (Multivitamin W/Minerals) 1 tab PO DAILY [facility] Ondansetron HCl (Zofran) 4 mg IV Q4-6HP PRN PRN Reason: Nausea And Vomiting Potassium Chloride (Klor-Con) 40 meq PO DAILYP PRN PRN Reason: K+ < 3.5 Senna/Docusate Sodium (Senna Plus Tablet) 1 tab PO HS [facility] Simvastatin (Zocor) 40 mg PO HS [facility] Sodium Chloride (Saline Flush) 10 ml IV Q8 [facility] Medical - PN: A/P - Time Spent With Patient Total time spent is greater than 50% in coordination of care (as documented) at patient's floor/unit and/or counseling patient: - Narrative A/P Narrative: A/P Blurry [id number]-possible TIA, symptoms resolved, MRI of the head is negative, CT head and CT angios is negative. Echo is unremarkable patient is on aspirin and statin continue same. Patient was deemed high risk for safe discharge and therefore is being considered for placement. Given the nature of patient's symptoms and negative findings on MRI should the patient's symptoms recur we can consider looking at anticholinesterase antibodies for possible myasthenia. Will leave it at the discretion of the PCP Hypertension-on lisinopril continue same Metabolic acidosis-bicarbonate 16, DC heparin DC saline monitor Continue aggressive OT PT and speech therapy DVT prophylaxis is with heparin Patient is full code
[2017-11-01] MEDS: SENNOSIDES/DOCUSATE SODIUM 1 TAB TABLET PO SCH (20:56)
[2017-11-01] MEDS: SIMVASTATIN 40 MG TABLET PO SCH (20:56)
[2017-11-01] MEDS ORDERED: FONDAPARINUX SODIUM 2.5 MG/0.5 ML SYRINGE SQ SCH (21:00)
[2017-11-01] MEDS: FONDAPARINUX SODIUM 2.5 MG/0.5 ML SYRINGE SQ SCH (21:06)
[2017-11-02 04:50] LABS: Mean Cell Volume 87.8 fL (80.0-100.0); Mean Corpuscular HGB Conc 34.1 g/dL (31.0-36.0); Mean Corpuscular Hemoglobin 29.9 pg (26.0-34.0); Platelet Count 211 K/mcL (140-440)
[2017-11-02 05:12] LABS: ALT/SGPT 8 U/l (0-40); Albumin 3.6 gm/dL (3.2-5.2); Albumin/Globulin Ratio 1.3 (1.0-2.3); Alkaline Phosphatase 51 U/L (39-117); Bilirubin,Direct < 0.2 mg/dL (0.0-0.3); Blood Urea Nitrogen 14 mg/dl (8-23); Gamma Glutamyl Transpeptidase 8 U/L (8-61); HDL Cholesterol 37 mg/dl (>40); LDL Cholesterol,Calculated 29 mg/dl (SEE CHART); Uric Acid 3.8 mg/dL (2.5-8.0)
[2017-11-02] MEDS: 0.9 % SODIUM CHLORIDE 10 ML SYRINGE IV SCH ×4 (05:44→21:51)
[2017-11-02 06:23] LABS: Eosinophils % (Manual) 3 % (0-7); Lymphocytes % 20 % (15-49); Monocytes % (Manual) 7 % (1-12); Platelet Estimate NORMAL (NORMAL); RBC Morphology NORMAL (NORMAL); Segmented Neutrophils % 70 % (38-78)
[2017-11-02 06:51] LABS: Estimated Average Glucose(eAG) 103 mg/dL; Hemoglobin A1C 5.2 % HGB (4.0-6.0)
[2017-11-02] MEDS ORDERED: NITROGLYCERIN 0.4 MG TAB.SUBL SL PRN (07:51)
[2017-11-02] MEDS ORDERED: [UNRECOGNIZED DRUG - OTHER] OU PRN (07:51)
[2017-11-02 08:13] LABS: ABG Methemoglobin 0.1 % (0.4-1.5); VBG Base Excess -7.2 (-2.0-2.0); VBG HCO3 17.9 mmol/L (24.0-28.0); VBG Oxygen Saturation 90.6 % (40.0-70.0); VBG PCO2 34.4 mmHg (41.0-51.0); VBG PH 7.33 U (7.32-7.42); VBG PO2 75 mmHg (25-40); VBG Total CO2 18.9 mmol/L (25.0-29.0)
[2017-11-02] MEDS ORDERED: POLYVINYL ALCOHOL OPHTH DROPS 15ML BOTTLE OU PRN (08:19)
[2017-11-02] MEDS ORDERED: ASPIRIN 81 MG TAB.CHEW CHEWED SCH (09:00)
[2017-11-02] MEDS ORDERED: THIAMINE 100 MG in 0.9 % SODIUM CHLORIDE 50 ML IV SCH (09:00)
[2017-11-02] MEDS: VIT A,C & E/LUTEIN/MINERALS TABLET PO SCH ×2 (09:24→21:51)
[2017-11-02] MEDS: DOCUSATE SODIUM 100 MG CAPSULE PO SCH ×2 (09:24→21:51)
[2017-11-02] MEDS: ASPIRIN 81 MG TAB.CHEW PO SCH (09:24)
[2017-11-02] MEDS: MULTIVIT,THER IRON,CA,FA & MIN 1 TABLET PO SCH (09:24)
[2017-11-02] MEDS: FONDAPARINUX SODIUM 2.5 MG/0.5 ML SYRINGE SQ SCH (09:24)
[2017-11-02] MEDS: LISINOPRIL 10 MG TABLET PO SCH (09:24)
--- NOTE | 2017-11-02 15:53 | Internal Med Progress Note ---
Medical - PN: Subj Patient information: Note initiated : 11/02/17 at 3:48 pm Service Date, if different from initiated Date: [] Patient: Arjun Huang 76 y/o M admitted on 10/30/17 for Speech Difficulties /Diplopia. Chief Complaint: [] Interval history: Mr. Huang is a 76 year old M with a history of hypertension/hyperlipidemia and follows up with Dr. Jaime as outpatient. Patient over the last 1 week has noticed change in vision with blurring anddiplopia. lives alone and has been managing independently with her sister and niece in town. This morning he was discovered by his friend confused and slurring and difficulty finding words. He was subsequently brought to [facility] ER. Initial workup was unremarkable with a negative head CT/CT angiogram head and neck.MRI was ordered. Patient received aspirin and statin. blood work including biochemical profile was unremarkable with a negative UA Subsequently hospitalist service was consulted for evaluation of TIA. The time of evaluation patient is accompanied with niece. denies tender clap headache. Denies fever or chills. He endorses double vision that has been ongoing over the last couple of days. He however was able to answer most the question and his symptoms have significantly improved since arrival to the ER. He denies swallowing difficulty. Denies seizure-like episode or loss of consciousness. Denies chest pain palpitation during neck pain unilateral headache. He denies recent changes in medication or prior similar episodes. He denies weight loss and glandular swelling. 10/31- symptoms fully resolved. Diplopia resolved. No dysarthria and dysphagia. Neuroimaging unremarkable. Echo pending. Continue aspirin and statin. Discharge with home health physical therapy/occupational therapy. Follow-up PCP in 5-10 days 11/01 Patient seen and examined, no neurological symptoms, patient's symptoms nearly resolved. Patient was deemed unstable for discharge yesterday and therefore stayed another day. Plan is for the patient to be discharged to a rehab facility we are waiting on insurance clearance. Continue with physical therapy while inpatient 11/02 Pt seen examined, no acute overnight issues, pt tolerating po diet well worked well with PT yesterday awaiting placement. Pt labs still show acidosis, bicarb is 16. Pertinent ROS: Denies headache, dizziness Denies chest pain, palpitations Denies cough or shortness of breath Denies abdominal pain, nausea or vomiting. - Constitutional Vitals: Vital Signs Temp Pulse Resp BP Pulse Ox 98.3 F 66 18 112/55 98 11/02/17 12:00 11/02/17 12:00 11/02/17 12:00 11/02/17 12:00 11/02/17 12:00 Period Temp Pulse Resp BP Sys/Webb Pulse Ox Last 24 Hr 98 F-98.8 F 66-68 16-18 112-169/55-82 93-98 Intake and Output 11/02/17 11/02/17 11/02/17 05:59 13:59 21:59 Intake Total 250 / 250 720 / 720 360 / 360 Output Total 250 / 250 200 / 200 Balance 0 / 0 520 / 520 360 / 360 Intake & Output: Intake & Output 11/02/17 11/02/17 11/02/17 05:59 13:59 21:59 Intake Total 250 / 250 720 / 720 360 / 360 Output Total 250 / 250 200 / 200 Balance 0 / 0 520 / 520 360 / 360 Intake: Oral 250 / 250 720 / 720 360 / 360 Output: Void Amount 250 / 250 200 / 200 Other: Meal Breakfast Lunch Percent of Meal Consumed 100% 25% Feeding Ability Assist with Tray Set Up Assist with Tray Set Up Exam: Constitutional; Afebrile, cooperative, alert, not in distress. Eyes- No icterus, , No periorbital swelling Ears- Ext ear normal, hearing normal to conversation. Neck- Midline trachea, supple Respiratory system: Air Entry equal on both sides, No crackles or wheezing, no rhonchi. CVS- Rate rhythm regular, S1,S2 heard, no gallop, no rub. Abdomen- Soft nontender abdomen, no organomegaly, no tenderness, no guarding or rigidity, [employer]- AOOx3, moving all extremities, no gross focal deficit noted. Medical - PN: Obj Da - Labs CBC & Chem 7: 11/02/17 03:55 11/02/17 03:55 Labs: Abnormal Lab Results 11/02/17 11/02/17 11/02/17 07:53 03:55 03:55 RBC 3.50 L Hgb 10.5 L Hct 30.7 L RDW 15.0 H ESR ABG Methemoglobin 0.1 L VBG pCO2 34.4 L VBG pO2 75 H VBG HCO3 17.9 L VBG Total CO2 18.9 L VBG O2 Saturation 90.6 H VBG Base Excess -7.2 L Carboxyhemoglobin 2.6 H Total Hemoglobin 9.9 L Sodium 131 L Carbon Dioxide 16 L Calcium 8.4 L Phosphorus 2.4 L HDL Cholesterol 37 L 11/01/17 11/01/17 10/31/17 03:45 03:45 04:10 RBC 3.61 L Hgb 10.8 L Hct 32.0 L RDW 14.8 H ESR ABG Methemoglobin VBG pCO2 VBG pO2 VBG HCO3 VBG Total CO2 VBG O2 Saturation VBG Base Excess Carboxyhemoglobin Total Hemoglobin Sodium Carbon Dioxide 16 L 15 L Calcium 8.5 L 8.4 L Phosphorus 2.2 L HDL Cholesterol 10/31/17 10/30/17 04:10 13:04 RBC 3.48 L Hgb 10.4 L Hct 30.8 L RDW 14.7 H ESR 43 H ABG Methemoglobin VBG pCO2 VBG pO2 VBG HCO3 VBG Total CO2 VBG O2 Saturation VBG Base Excess Carboxyhemoglobin Total Hemoglobin Sodium Carbon Dioxide Calcium Phosphorus HDL Cholesterol Meds: Medications Acetaminophen (Tylenol) 650 mg PO Q4-6HP PRN PRN Reason: PAIN/FEVER > 101 Artificial Tears (Artificial Tears Ophth Drops) 1 gtt OU DAILYP PRN PRN Reason: Dry Eyes Aspirin (Aspirin) 81 mg PO DAILY [facility] Last Admin: 11/02/17 09:24 Dose: 81 mg Docusate Sodium (Colace) 100 mg PO BID [facility] Last Admin: 11/02/17 09:24 Dose: 100 mg Fondaparinux (Arixtra) 2.5 mg SQ DAILY [facility] Last Admin: 11/02/17 09:24 Dose: 2.5 mg Magnesium Sulfate (Magnesium Sulfate) 2 gm in 50 mls @ 50 mls/hr IV UD PRN PRN Reason: MG = or < 1.7 Acetaminophen (Ofirmev) 1,000 mg in 100 mls @ 200 mls/hr IV Q6HP PRN PRN Reason: PAIN/FEVER > 101 Iron Carb/Multivit/Custer/Folic Acid (Multivitamin W/Minerals) 1 tab PO DAILY [facility] Last Admin: 11/02/17 09:24 Dose: 1 tab Lisinopril (Zestril) 10 mg PO DAILY [facility] Last Admin: 11/02/17 09:24 Dose: 10 mg Multivitamins/Minerals (Ocuvite) 1 tab PO BID [facility] Last Admin: 11/02/17 09:24 Dose: 1 tab Nitroglycerin (Nitrostat) 0.4 mg SL Q5M PRN PRN Reason: Chest Pain Ondansetron HCl (Zofran) 4 mg IV Q4-6HP PRN PRN Reason: Nausea And Vomiting Blink Tears Lubricating Eye Drops 2 dose OU PRN PRN PRN Reason: Dry Eyes Potassium Chloride (Klor-Con) 40 meq PO DAILYP PRN PRN Reason: K+ < 3.5 Senna/Docusate Sodium (Senna Plus Tablet) 1 tab PO HS [facility] Last Admin: 11/01/17 20:56 Dose: Not Given Simvastatin (Zocor) 40 mg PO [facility] Last Admin: 11/01/17 20:56 Dose: 40 mg Sodium Chloride (Saline Flush) 10 ml IV Q8 [facility] Last Admin: 11/02/17 14:36 Dose: 10 ml - ABG Interpretation ABG results: 11/02/17 07:53 ABG Methemoglobin 0.1 L VBG pH 7.33 VBG pCO2 34.4 L VBG pO2 75 H VBG HCO3 17.9 L VBG Total CO2 18.9 L VBG O2 Saturation 90.6 H VBG Base Excess -7.2 L Medical - PN: A/P - Time Spent With Patient Total time spent is greater than 50% in coordination of care (as documented) at patient's floor/unit and/or counseling patient: - Narrative A/P Narrative: A/P Blurry [id number]-possible TIA, symptoms resolved, MRI of the head is negative, CT head and CT angios is negative. Echo is unremarkable patient is on aspirin and statin continue same. Patient was deemed high risk for safe discharge and therefore is being considered for placement. Given the nature of patient's symptoms and negative findings on MRI should the patient's symptoms recur we can consider looking at anticholinesterase antibodies for possible myasthenia. Will leave it at the discretion of the PCP Hypertension-on lisinopril continue same Metabolic acidosis-bicarbonate 16, DC heparin DC saline, pt still acidotic, venous ph 7.33, get urine anion gap, pt does not have diarrhea. anion gap is 11 , may need bicarbonate therapy Continue aggressive OT PT and speech therapy DVT prophylaxis is with arixtra (hep not used as can cause rta) Patient is full code
[2017-11-02 17:44] LABS: Appearance,Urine CLEAR; Bacteria,Urine 0 /hpf (0); Bilirubin,Urine NEG (NEG); Color,Urine YELLOW; Glucose,Urine (UA) NEGATIVE (NEG); Leukocyte Esterase,Urine NEG /uL (NEG); Mucus,Urine FEW /hpf (0); Protein,Urine NEG (NEG); Specific Gravity,Urine 1.011 (1.000-1.035); Urine Blood NEG mg/dL (<0.03); Urine Hyaline Cast 1 /lpf (0-2); Urine RBC < 1 /hpf (0-1); Urine Squamous Epithelial Cell 0 /hpf (0-4); Urine WBC < 1 /hpf (0-4); Urobilinogen,Urine NEG (NEG)
[2017-11-02] MEDS ORDERED: SIMVASTATIN 40 MG TABLET PO SCH (21:00)
[2017-11-02] MEDS: SIMVASTATIN 40 MG TABLET PO SCH (21:51)
[2017-11-02] MEDS: SENNOSIDES/DOCUSATE SODIUM 1 TAB TABLET PO SCH (21:51)
[2017-11-03 04:32] LABS: ABG Methemoglobin 0.3 % (0.4-1.5); VBG Base Excess -5.3 (-2.0-2.0); VBG HCO3 18.8 mmol/L (24.0-28.0); VBG Oxygen Saturation 95.7 % (40.0-70.0); VBG PCO2 31.5 mmHg (41.0-51.0); VBG PH 7.39 U (7.32-7.42); VBG PO2 140 mmHg (25-40); VBG Total CO2 19.7 mmol/L (25.0-29.0)
[2017-11-03 04:33] LABS: Mean Corpuscular HGB Conc 34.5 g/dL (31.0-36.0); Platelet Count 210 K/mcL (140-440); RBC 3.37 M/mcL (4.50-5.90); Red Cell Distribution Width 14.9 % (11.5-14.5)
[2017-11-03 05:20] LABS: Eosinophils % (Manual) 3 % (0-7); Lymphocytes % 20 % (15-49); Monocytes % (Manual) 7 % (1-12); Platelet Estimate NORMAL (NORMAL); RBC Morphology NORMAL (NORMAL); Segmented Neutrophils % 61 % (38-78)
[2017-11-03 05:22] LABS: ALT/SGPT 11 U/l (0-40); Albumin 3.7 gm/dL (3.2-5.2); Albumin/Globulin Ratio 1.5 (1.0-2.3); Alkaline Phosphatase 51 U/L (39-117); Bilirubin,Direct < 0.2 mg/dL (0.0-0.3); Blood Urea Nitrogen 14 mg/dl (8-23); Gamma Glutamyl Transpeptidase 9 U/L (8-61); Uric Acid 3.8 mg/dL (2.5-8.0)
[2017-11-03] MEDS: 0.9 % SODIUM CHLORIDE 10 ML SYRINGE IV SCH ×2 (05:57→08:00)
[2017-11-03] MEDS: LISINOPRIL 10 MG TABLET PO SCH (09:12)
[2017-11-03] MEDS: MULTIVIT,THER IRON,CA,FA & MIN 1 TABLET PO SCH (09:12)
[2017-11-03] MEDS: ASPIRIN 81 MG TAB.CHEW PO SCH (09:12)
[2017-11-03] MEDS: VIT A,C & E/LUTEIN/MINERALS TABLET PO SCH (09:12)
[2017-11-03] MEDS: DOCUSATE SODIUM 100 MG CAPSULE PO SCH (09:12)
[2017-11-03] MEDS: FONDAPARINUX SODIUM 2.5 MG/0.5 ML SYRINGE SQ SCH (09:13)
--- NOTE | 2017-11-03 09:26 | Discharge Summary ---
Medical - DS: Prov Patient information: Note initiated : 11/03/17 at 9:22 am Service Date, if different from initiated Date: [] Patient: Arjun Huang 76 y/o M admitted on 10/30/17 for Speech Difficulties /blurred vision L eye Date of admission: 10/30/17 16:39 Discharge date: 11/03/17 Primary care physician: Arjun Brooks Consults: 10/30/17 15:30 Consult to Physician [CONS] Stat Comment: Consulting Provider: Adebayo Martin Reason For Exam: Physician to Consult Medical - DS: Meds - Discharge Medications Prescriptions: Aspirin 324 mg CHEWED DAILY #30 tab.chew Active and Home Medications: Home Medications Lisinopril [Zestril] 10 mg PO DAILY 03/04/16 [History Confirmed 11/01/17 Last Taken Unknown] Nitroglycerin [Nitrostat] 0.4 mg SL Q5M PRN 03/04/16 [History Confirmed Last Taken Unknown] Simvastatin [Zocor] 40 mg PO HS 03/04/16 [History Confirmed 11/01/17 Last Taken Unknown] Aspirin 324 mg CHEWED DAILY #30 tab.chew 10/31/17 [Rx Last Taken Unknown] Carboxymethylcellulose Sodium [Refresh Tears] 1 drop OP PRN PRN 11/01/17 [ History Confirmed 11/01/17 Last Taken Unknown] Polyethylene Glycol 400 1 - 2 drop OP PRN PRN 11/01/17 [History Confirmed Last Taken Unknown] Vit A/Vit C/Vit E/Zinc/Copper [Preservision Areds Softgel] 1 each PO BID [History Confirmed 11/01/17 Last Taken Unknown] Medical - DS: Hosp Hospital course: Mr. Huang is a 76 year old M with a history of hypertension/hyperlipidemia and follows up with Dr. Jaime as outpatient. Patient over the last 1 week has noticed change in vision with blurring and diplopia. lives alone and has been managing independently with her sister and niece in town. This morning he was discovered by his friend confused and slurring and difficulty finding words. He was subsequently brought to [facility] ER. Initial workup was unremarkable with a negative head CT/CT angiogram head and neck.MRI was ordered. Patient received aspirin and statin. blood work including biochemical profile was unremarkable with a negative UA Subsequently hospitalist service was consulted for evaluation of TIA. The time of evaluation patient is accompanied with niece. denies tender clap headache. Denies fever or chills. He endorses double vision that has been ongoing over the last couple of days. He however was able to answer most the question and his symptoms have significantly improved since arrival to the ER. He denies swallowing difficulty. Denies seizure-like episode or loss of consciousness. Denies chest pain palpitation during neck pain unilateral headache. He denies recent changes in medication or prior similar episodes. He denies weight loss and glandular swelling. 10/31- symptoms fully resolved. Diplopia resolved. No dysarthria and dysphagia. Neuroimaging unremarkable. Echo is without significant abnormalities. Continue aspirin and statin. 11/01 Patient seen and examined, no neurological symptoms, patient's symptoms nearly resolved. States he never had 'double vision', but was complaining of blurry vision on L eye. S/P treatment of hemorrhage in L eye 2 weeks ago. Has not had any ophtalmologic FU. Vision now slightly improving. 11/02. Has been able to ambulate with walker. 11/03. Overall improving. Stable. Agrees with discharge and continued PT as outpatient. FU with ophtalmology. Discharge diagnosis: TIA, HTN Secondary discharge diagnosis: Hypelipidemia Reason for admission: AMS Pertinent studies/significant findings: CT-brain: no acute changes CTA head and Neck: IMPRESSION: 1. Mild atherosclerotic calcification of the petrous, cavernous, and supraclinoid segments of the internal carotid arteries 2. No intracranial stenoses. No occluded branch. 3. No aneurysm or arteriovenous malformation 1. Mild calcified plaque at the origin of both internal carotid arteries. 2. No soft plaque. No stenosis. No evidence for ulceration 3. No other abnormality MRI brain: no acute infarction ECHO: normal LVEF, mild AI, moderately dilated ascending aorta - Time Spent with Patient Total time spent providing and/or coordinating discharge services: Less than 30 minutes Medical - DS: Exam - Constitutional Vitals: Vital Signs Temp Pulse Resp BP BP BP Pulse Ox 11/03/17 08:00 98.9 F 68 16 140/68 97 11/03/17 04:00 99.1 F H 16 134/56 96 11/02/17 23:57 98.2 F 16 157/76 95 11/02/17 20:00 98.4 F 16 156/77 95 11/02/17 19:59 67 98 11/02/17 16:00 97.9 F 62 18 128/63 98 11/02/17 12:00 98.3 F 66 18 112/55 98 Intake and Output 11/02/17 11/03/17 11/03/17 21:59 05:59 13:59 Intake Total 960 / 960 300 / 300 300 / 300 Output Total 910 / 910 300 / 300 Balance 50 / 50 0 / 0 300 / 300 Intake: Oral 960 / 960 300 / 300 300 / 300 Output: Void Amount 910 / 910 300 / 300 Other: Meal Dinner Percent of Meal Consumed 50% Feeding Ability Assist with Tray Set Up Stool Size Large Stool Color Brown Stool Consistency Formed # Bowel Movements 1 0 Weight 155 lb General appearance: no acute distress - Head Head exam: Present: normal inspection - Eye Eye exam: Present: conjunctival injection (Left, mild) - Respiratory Respiratory exam: Present: normal respiratory exam - Cardiovascular Cardiovascular exam: Present: normal rate and rhythm - Extremities Exam Extremities exam: Present: normal inspection Medical - DS: Data Labs on day of discharge: Labs from last 24 hours 11/03/17 11/03/17 11/03/17 03:55 03:55 03:55 WBC RBC Hgb Hct MCV MCH MCHC RDW Plt Count MPV Total Counted Seg Neutrophils % Band Neutrophils % Lymphocytes % Monocytes % (Manual) Eosinophils % (Manual) Reactive Lymphocytes Platelet Estimate RBC Morphology ABG Methemoglobin 0.3 L VBG pH 7.39 VBG pCO2 31.5 L VBG pO2 140 H VBG HCO3 18.8 L VBG Total CO2 19.7 L VBG O2 Saturation 95.7 H VBG Base Excess -5.3 L VBG Lactic Acid 0.5 Carboxyhemoglobin 2.6 H Total Hemoglobin 9.8 L O2 Delivery Level Not Reportable Sodium 130 L Potassium 3.8 Chloride 99 Carbon Dioxide 17 L Anion Gap 14.0 BUN 14 Creatinine 0.9 GFR Calculation 82 Glucose 98 Uric Acid 3.8 Calcium 8.3 L Phosphorus 2.4 L Magnesium 2.0 Total Bilirubin 0.5 Direct Bilirubin < 0.2 GGT 9 AST 14 ALT 11 Alkaline Phosphatase 51 Lactate Dehydrogenase 135 Total Protein 6.1 Albumin 3.7 Globulin 2.4 Albumin/Globulin Ratio 1.5 Triglycerides 49 Urine Color Urine Appearance Urine pH Ur Specific [place] Urine Protein Urine Glucose (UA) Urine Ketones Urine Occult Blood Urine Nitrate Urine Bilirubin Urine Urobilinogen Ur Leukocyte Esterase Urine RBC Urine WBC Ur Squamous Epith Cells Urine Bacteria Hyaline Casts Urine Mucus Ur Culture Indicated? Ur Random Sodium Ur Random Potassium Ur Random Chloride 11/03/17 11/02/17 11/02/17 03:55 17:03 17:02 WBC 6.7 RBC 3.37 L Hgb 10.1 L Hct 29.3 L MCV 87.0 MCH 30.0 MCHC 34.5 RDW 14.9 H Plt Count 210 MPV 7.6 Total Counted 100 Seg Neutrophils % 61 Band Neutrophils % Not Reportable Lymphocytes % 20 Monocytes % (Manual) 7 Eosinophils % (Manual) 3 Reactive Lymphocytes 9 H Platelet Estimate Normal RBC Morphology Normal ABG Methemoglobin VBG pH VBG pCO2 VBG pO2 VBG HCO3 VBG Total CO2 VBG O2 Saturation VBG Base Excess VBG Lactic Acid Carboxyhemoglobin Total Hemoglobin O2 Delivery Level Sodium Potassium Chloride Carbon Dioxide Anion Gap BUN Creatinine GFR Calculation Glucose Uric Acid Calcium Phosphorus Magnesium Total Bilirubin Direct Bilirubin GGT AST ALT Alkaline Phosphatase Lactate Dehydrogenase Total Protein Albumin Globulin Albumin/Globulin Ratio Triglycerides Urine Color Yellow Urine Appearance Clear Urine pH 5.0 Ur Specific [place] 1.011 Urine Protein Neg Urine Glucose (UA) Negative Urine Ketones Neg Urine Occult Blood Neg Urine Nitrate Neg Urine Bilirubin Neg Urine Urobilinogen Neg Ur Leukocyte Esterase Neg Urine RBC < 1 Urine WBC < 1 Ur Squamous Epith Cells 0 Urine Bacteria 0 Hyaline Casts 1 Urine Mucus Few Ur Culture Indicated? No Ur Random Sodium 23 Ur Random Potassium 20.5 Ur Random Chloride 43 Medical - DS: A/P - Patient/Caregiver Discharge Instructions Activity: as per physical therapy, increase activity as tolerated Diet: Cardiac Additional Instructions: Follow-up PCP in 5 days Continue aspirin 325 daily Continue aggressive bowel regimen to prevent constipation Continue fall precautions Home Health PT, OT All meals on chair sitting upright at 90 degrees to prevent aspiration Return to ER if worsening fever chills shortness of breath, diarrhea, bleeding Review risk and side effect profile of medications including aspirin. Side effect may include mild to severe reaction including life threatening bleed and even which can be prevented by close follow-up with PCP and monitoring for side effects Continue diet and activity as advised Discussed importance of medication adherence Portions of this chart may have been created with [employer] voice recognition software. Occasional wrong-word or ?sound-like? substitutions may have occurred due to the inherent limitations of voice recognition software. Please read the chart carefully and recognize, using context, where the substitutions have occurred. CC- PCP Prescriptions: Aspirin 324 mg CHEWED DAILY #30 tab.chew Other Amb Orders: OT Discharge Order Location: Determined By Patient Physical Therapy at Discharge - General Location: Determined By Patient - Follow up Plan Follow up with: Arjun Brooks, [Primary Care Provider] - (Dr. Brooks's office is not open on Fridays; A message has been left for them to contact you. If you do not hear from them on Friday, please call to schedule a post hospital appointment within the next 7 days. ) Slick Kuo [Other] Disposition: Xfer SNF Prognosis: Good Rehab Potential: Fair I certify that the patient requires SNF services: Yes Overall status at discharge: patient is progressing back to baseline
== END 2017-11-03 11:47 ==
LOC: ED 12:45 → ICU 12:45
PROVIDERS: ADMIT Internal Medicine; ATTEND Specialist